=== PATIENT | male | born 1950 | race Caucasian/White ===

== ENCOUNTER 2021-11-21 06:43 | Observation (INO) ==
--- NOTE | 2021-09-24 16:00 | PAT Medication Instructions ---
Medication Instructions Date of Service September 24, 2021 Home Medications Medication Instructions Recorded ramipril 10 mg capsule 10 mg PO BID #180 caps 03/02/21 ezetimibe 10 mg tablet 10 mg PO QPM #90 tabs 06/01/21 hydrochlorothiazide 12.5 mg tablet 12.5 mg PO QAM #90 tabs 06/01/21 carvedilol 6.25 mg tablet 6.25 mg PO BID #180 tabs 07/26/21 nitroglycerin 0.4 mg sublingual 0.4 mg sublingual Q5M PRN Chest 07/26/21 tablet Pain #30 tabs aspirin 81 mg tablet,delayed release 81 mg PO QAM cholecalciferol (vitamin D3) 50 mcg (2,000 unit) capsule 2,000 unit PO BID multivitamin (Multiple Vitamins tablet) 1 tab PO QAM apixaban 5 mg tablet (Eliquis) 5 mg PO BID ramipril 10 mg capsule 10 mg PO BID atorvastatin 80 mg tablet 80 mg PO QPM mupirocin 2 % topical ointment 1 applic topical UD PRN NOSE BLEEDING ezetimibe 10 mg tablet 10 mg PO QPM hydrochlorothiazide 12.5 mg tablet 12.5 mg PO QAM carvedilol 6.25 mg tablet 6.25 mg PO BID loratadine 10 mg tablet (Claritin) 10 mg PO QAM PRN Allergy Symptoms nitroglycerin 0.4 mg sublingual tablet 0.4 mg sublingual Q5M PRN Chest Pain Continue as directed nitroglycerin 0.4 mg sublingual tablet 0.4 mg sublingual Q5M PRN Chest Pain(if needed) ASK your prescriber and surgeon apixaban 5 mg tablet (Eliquis) 5 mg PO BID(in order for spinal or epidural anesthesia, Eliquis needs to be stopped 72 hours/3 days before surgery. Please check if okay with doctor that prescribes this to you) DO NOT take the morning of surgery cholecalciferol (vitamin D3) 50 mcg (2,000 unit) capsule 2,000 unit PO BID multivitamin (Multiple Vitamins tablet) 1 tab PO QAM ramipril 10 mg capsule 10 mg PO BID hydrochlorothiazide 12.5 mg tablet 12.5 mg PO QAM loratadine 10 mg tablet (Claritin) 10 mg PO QAM PRN Allergy Symptoms Take morning of surgery With a small sip of water, OTHERWISE NOTHING TO EAT OR DRINK AFTER MIDNIGHT: aspirin 81 mg tablet,delayed release 81 mg PO QAM (unless directed otherwise by surgeon) mupirocin 2 % topical ointment 1 applic topical UD PRN NOSE BLEEDING(if needed) carvedilol 6.25 mg tablet 6.25 mg PO BID Take evening before surgery cholecalciferol (vitamin D3) 50 mcg (2,000 unit) capsule 2,000 unit PO BID ramipril 10 mg capsule 10 mg PO BID atorvastatin 80 mg tablet 80 mg PO QPM ezetimibe 10 mg tablet 10 mg PO QPM carvedilol 6.25 mg tablet 6.25 mg PO BID Other Notes If you have any questions please call us at [phone] or [phone] or [phone] or [phone]
--- NOTE | 2021-10-02 13:08 | Anesthesiology Consultation ---
Date of Service October 02, 2021 Assessment & Plan (1) Encounter for pre-operative examination: - COVID screening: Per assessment on 10/02: No known COVID-19 positive contacts or current COVID-19 related symptoms. Travel screen- returned from [place] 10/01. Patient vaccinated. At surgeon discretion if preop Covid testing being done. - Cardiology office visit (07/26/21): "Post PCI x2 to RCA 12/2011, initially in the setting of cardiac arrest.. Multivessel CAD on cath 02/2017minimal ischemia on repeated stress test, being medically managed.. Persistent atrial fibrillationstop sotalol. Carvedilol for rate control, [id number], on Eliquis.. Hypertensionwell controlled on 2 agents.. Stable from a cardiac standpoint. Participating with cardiac rehab with improving exercise tolerance. No anginal symptoms. Recent Lexiscan SPECT negative for ischemia. On exam remains in persistent rate controlled atrial fibrillation. Stable mild lower extremity edema, no pulmonary congestion.. As remains in persistent, asymptomatic atrial fibrillation will discontinue sotalol. Switch to carvedilol for rate control, blood pressure management. Continue anticoagulation with Eliquis. Encouraged resuming regular exercise following completion of cardiac rehab. No other changes made to cardiac regimen.. Repeat Lexiscan SPECT in April 2022 with follow-up after test... Follow Up: 9 months" - Outpatient joint assessment: Pt currently scheduled for inpatient pathway. If surgeon requests review for outpatient joint pathway, patient is not candidate for outpatient joint program from anesthesia standpoint. - Apixaban instructions: patient made aware that in order for spinal anesthesia, Apixaban needs to be held 72 hours/3 days prior to surgery. Patient voiced un derstanding/will check if okay with prescriber. - Recent fall: Pt had recent mechanical fall resulting in head injury/left ear laceration. Seen at [facility] ER 09/29/21. CT head negative for any intracranial injury per ER records. Pt reports feeling well at PAT visit 10/02/21- left ear laceration healing. Chart Review Chart Review: Acceptable Risk for Surgery (pending evaluation AM DOS) and Patient seen in Pre Admission Testing Teaching & Discussion Pre-Anesthesia Teaching/Discussion Notes: Instructed NPO after midnight before surgery,except medications with 15 cc of water. Medication instructions provided according to the PAT guidelines. History Surgery Operation Date: 10/12/21 12:30 Proposed Procedures p Left Total Knee Arthroplasty - Mikel Fields MD Height/Weight Height: 5 ft 7 in Weight: 92.5 kg Allergies Allergy/AdvReac Type Severity Reaction Status Date / Time No Known Drug Allergies Allergy Unknown Verified 09/21/21 11:30 Medications Home Medications Medication Instructions Recorded Confirmed Last Taken aspirin 81 mg tablet,delayed 81 mg PO QAM 01/19/20 09/21/21 07/17/21 release cholecalciferol (vitamin D3) 50 2,000 unit PO BID 01/19/20 09/21/21 07/17/21 mcg (2,000 unit) capsule multivitamin (Multiple Vitamins 1 tab PO QAM 01/19/20 09/21/21 07/17/21 tablet) apixaban 5 mg tablet (Eliquis) 5 mg PO BID 02/14/20 09/21/21 07/17/21 ramipril 10 mg capsule 10 mg PO BID #180 caps 03/02/21 09/21/21 07/17/21 atorvastatin 80 mg tablet 80 mg PO QPM 05/31/21 09/21/21 07/16/21 mupirocin 2 % topical ointment 1 applic topical UD PRN NOSE 05/31/21 09/21/21 07/16/21 BLEEDING ezetimibe 10 mg tablet 10 mg PO QPM #90 tabs 06/01/21 09/21/21 07/16/21 hydrochlorothiazide 12.5 mg tablet 12.5 mg PO QAM #90 tabs 06/01/21 09/21/21 07/17/21 carvedilol 6.25 mg tablet 6.25 mg PO BID #180 tabs 07/26/21 09/21/21 Unknown loratadine 10 mg tablet (Claritin) 10 mg PO QAM PRN Allergy Symptoms 07/26/21 09/21/21 Unknown nitroglycerin 0.4 mg sublingual 0.4 mg sublingual Q5M PRN Chest 07/26/21 09/21/21 Unknown tablet Pain #30 tabs Past Medical History Medical History AF (atrial fibrillation) Reason for Eliquis Follows with [facility] cardiology CAD (coronary artery disease) Post PCI x2 to RCA 12/2011, initially in the setting of cardiac arrest.. Multivessel CAD on cath (2017)minimal ischemia on repeated stress test, being medically managed. No significant ischemia on 04/2021 nuclear stress test. Chronic venous insufficiency History of hepatitis A 1969 Hyperlipidemia Hypertension Myocardial infarction 2010 Obesity (BMI 30.0-34.9) Primary hypertension Exercise / Class Metabolic Activity III < 4 Walking/Shop/Light housework (one FS (no CP, + SOB)) Past Family History Family History Father Cardiac disorder Hypertension Myocardial infarction Mother Hypertension Sister Hypertension Family/Other Hypertension per new patient form-"All"-pt states multiple maternal and paternal family members Other No family history of adverse response to anesthesia No family history of bleeding disorder Denies family history of Ovarian cancer Prostate cancer Breast cancer Colorectal cancer Past Surgical History Surgical History History of cardiac cath Post PCI x2 to RCA 12/2011, initially in the setting of cardiac arrest.. Multivessel CAD on cath 02/2017minimal ischemia on repeated stress test, being medically managed History of cataract surgery right /LEFT History of colonoscopy 04/25/2009 12/08/19-"metal clip" History of coronary angiogram History of left knee surgery 09/09/1997 History of mandibular surgery cyst removed-09/13/93 History of oral surgery gum-11/07/2000 History of surgical removal of ganglion cyst 11/23/13 History of vasectomy 12/12/1995 Past Anesthesia History No Hx of Anesthesia Complications and No Family Hx of Anesthesia Complications History of PONV No Hx of PONV and No Hx of Motion Sickness Social History Smoking Status: Former smoker tobacco type: cigarettes Do You Dip or Chew Tobacco: No Smoking End Date: QUIT 01/1974 Hx Alcohol Use: Yes Alcohol type: beer, wine and hard liquor alcohol intake frequency: 0-2 drinks per day Hx Substance Use: No substance use type: does not use Review of Systems Patient denies chest pain, shortness of breath, fever, chills, cough, wheezing, palpitations. Physical Exam Vital Signs VITALS BP 100/68 P 55 TEMP 98.0 SP02 95%RA RESP 16 PHYSICAL Mildly decreased cervical extension range of motion. Full TMJ range of motion. TMD 3.5 finger breaths Mallampati Score 2 Dentition: several missing teeth, + cap (side) Lungs: clear throughout to auscultation Cardiac: regular rate, irregular rhythm, no murmurs noted Spine: normal Carotid arteries: negative bruit Extremities: no edema Lab Results Anesthesia Preop Results Results Anesthesia Widget: WBC 5.63 K/ul (4.8-10.8) 10/02/21 Hgb 14.9 g/dl (14.0-18.0) 10/02/21 Hct 46.6 % (40.1-51.0) 10/02/21 Plt 175 K/uL (130-400) 10/02/21 Na 137 mmol/L (136-145) 10/02/21 K 3.7 mmol/L (3.5-5.1) 10/02/21 Cl 103 mmol/L (98-107) 10/02/21 CO2 28 mmol/L (21-32) 10/02/21 BUN 15 mg/dl (6-23) 10/02/21 Creat 0.81 mg/dl (0.6-1.4) 10/02/21 Glucose Level 114 mg/dl (70-99(Fasting)) H 10/02/21 PT 11.9 Seconds (9.0-12.0) 10/02/21 PTT 32.2 Seconds (21.0-31.0) H 10/02/21 INR 1.1 (0.9-1.1) 10/02/21 Blood Type A Positive 10/02/21 Antibody Screen NEGATIVE 10/02/21 Testing Electrocardiogram Date: 10/02/21 Findings: + AFIB @ (68) Chest X-Ray Date: 10/02/21 FINDINGS: Lung volumes are normal. Lungs are clear. There is no pneumothorax or pleural effusion. Moderate cardiomegaly is noted. Mediastinal contours are normal. There is no evidence for pulmonary edema. IMPRESSION: No acute cardiopulmonary findings. Cardiomegaly. Stress Test Date: 04/20/21 Type: nuclear Normal Lexiscan myocardial perfusion study with no evidence of infarct or ischemia. No left ventricular wall motion abnormalities. Nondilated left ventricle with normal systolic function (EF=53%). Non-diagnostic stress ECG due to inability to reach target HR; no ischemic changes or dysrhythmias. Cardiac Catheterization Date: 02/2017 Attempts to obtain official report unsuccessful. 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 CABG considered. At that time underwent nuclear stress and had above average functional capacity (9: 29) with only minimal apical ischemia and decision made to manage CAD medically. Since that time has undergone yearly stress tests"
--- NOTE | 2021-11-17 11:50 | History and Physical Report ---
DATE OF ADMISSION: 11/21/2021. CHIEF COMPLAINT: Bilateral knee pain and discomfort, left side greater than right. HISTORY OF PRESENT ILLNESS: A 71-year-old gentleman who presents for surgical treatment of his knees , particularly the left knee. He has got a long history of knee problems, left side a bit worse than right. He has been through extensive conservative treatment provided elsewhere. He is not interest ed in further conservative care and would like to have his left knee replaced. He has got global eros n in the knee. The more he is up and on it, the more it hurts. He was actually scheduled previously , but canceled due to some COVID issues. He now presents for definitive treatment. PAST MEDICAL HISTORY: 1. Atrial fibrillation, on Eliquis. 2. History of PE with no known clotting disorder, on Eliquis. 3. Coronary artery disease, status post stent placement with a heart attack in 2010 without current symptoms. 4. Mild obesity. PAST SURGICAL HISTORY: 1. Cardiac catheterization. 2. Cataract surgery. 3. Left knee surgery. 4. Mandibular surgery. 5. Oral surgery. 6. Wrist surgery for ganglion removal. 7. Vasectomy. ALLERGIES: None. CURRENT MEDICATIONS: 1. Eliquis. 2. Aspirin. 3. Atorvastatin. 4. Carvedilol. 5. Vitamin D3. 6. Ezetimibe. 7. Hydrochlorothiazide. 8. Claritin. 9. Multivitamin. 10. Mupirocin ointment. 11. Nitroglycerin. 12. Ramipril. SOCIAL HISTORY: A 71-year-old male. Former smoker. Does not smoke anymore. Limited alcohol intake . FAMILY HISTORY: Noncontributory. REVIEW OF SYSTEMS: Negative for diabetes. He does have a history of a cardiac stent placement. Also atrial fibrillation on Eliquis. PHYSICAL EXAMINATION: GENERAL: Shows a pleasant middle-aged male. Looks to be in pretty good health. HEENT: Benign. NECK: Supple. No lymphadenopathy. LUNGS: Clear to auscultation. HEART: Has a regular rate and rhythm. ABDOMEN: Soft, nontender, nondistended. EXTREMITIES: Grossly neurovascularly intact except as follows. Examination of his knees revealed patient walks with a bit of waddling gait. He has got varus alignm ent to both knees. Examination of the left knee reveals a varus alignment. He has got bony hypertro phy medially. Small knee effusion. Range of motion is 5-120. No instability. Examination of the right knee reveals varus alignment. Minimal knee effusion. Range of motion is 5- 125. No instability. X-RAYS: Four view knee series of left knee shows advanced left knee degenerative joint disease. He has got complete loss of medial joint space. He has got tibial femoral subluxation. He has got tric ompartment disease. ASSESSMENT: A 71-year-old gentleman with multiple medical issues including chronic atrial fibrillati on on Eliquis, history of deep venous thrombosis in the past, coronary artery disease with advanced b ilateral knee degenerative joint disease, left side worse than right. He has failed conservative chaparrita sures and would like to have his left knee replaced. He had been scheduled previously, but had to be canceled due to some COVID issues. He would now like to proceed. PLAN: We will proceed with left knee replacement. The risks and benefits of this procedure were exp lained to the patient and include but not limited to DVT, PE, , infection, neurological injury, vascular injury, bleeding problem, pain, limited range of motion, stiffness, failure to relieve sympt oms, incomplete relief of symptoms, need for further surgery in the future, etc. The patient underst ands and desires to proceed. Informed consent was obtained. He knows to hold his Eliquis 3 days preop. We will begin his 24 hours postoperatively at prophylacti c dose. This will be for his atrial fibrillation as well as his DVT prophylaxis. He is planning to be discharged to home using energy physical therapy. Job ID: [id number]
[~2021-11-21 06:43] MED LIST: ACETAMINOPHEN 500 MG TAB PO SCH; BUPIVACAINE 0.5 % 5 MG/1 ML MPF 30ML VIAL ONE; BUPIVACAINE LIPOSOME/PF 266 MG, BUPIVACAINE/EPINEPHRINE 50 ML, SODIUM CHLORIDE 0.9% 30 ... INFIL SCH; CeleBREX 200 MG CAP PO SCH; FAMOTIDINE 20 MG TAB PO SCH; LR 500ML BOLUS, THEN 15ML/HR IV SCH; LR 60ML/HR IV SCH; METOCLOPRAMIDE HCL 10 MG TABLET PO SCH; ROPIVACAINE 0.5% 5 MG/ML 30 ML VIAL ONE; TRANEXAMIC ACID 1,000 MG **IV Intra-op IV SCH; ceFAZolin 2000MG 2,000 MG/15 ML SYR IV SCH
--- NOTE | 2021-11-21 06:58 | History & Physical Bridge Note ---
Date of Service November 21, 2021 History & Physical Bridge Note I have examined the patient, reviewed the History & Physical and in the interval since the performance of the History & Physical I have noted the following changes of clinical significance: no changes noted
[2021-11-21] MEDS ORDERED: MIDAZOLAM HCL 1 MG/ML 2ML VIAL ONE (07:29)
[2021-11-21] MEDS ORDERED: fentaNYL citrate 100 MCG/2 ML VIAL ONE (07:29)
[2021-11-21] MEDS ORDERED: LIDOCAINE 2% 20 MG/ML 5 ML SYR IV ONE (07:32)
[2021-11-21] MEDS ORDERED: PROPOFOL IV EMULSION 10 MG/ML 20 ML VIAL IV ONE ×2 (07:32→10:35)
[2021-11-21] MEDS ORDERED: fentaNYL citrate 100 MCG/2 ML VIAL IV PRN (08:03)
[2021-11-21] MEDS ORDERED: ONDANSETRON INJ 2 MG/ML 2 ML VIAL IV PRN ×2 (08:03→13:31)
[2021-11-21] MEDS ORDERED: ATROPINE SULFATE 0.1 MG/ML 10ML SYR IV PRN (08:03)
[2021-11-21] MEDS ORDERED: ePHEDrine sulfate 50 MG/ML AMP IV PRN (08:03)
[2021-11-21] MEDS ORDERED: BUPIVACAINE LIPOSOME 1.3% 266 MG/20 ML VIAL ONE (09:01)
[2021-11-21] MEDS ORDERED: SODIUM CHLORIDE 0.9% PF 50 ML VIAL ONE (09:01)
[2021-11-21] MEDS ORDERED: BUPIVACAINE/EPINEPHRINE 0.25% 1:200,000 30 ML VIAL ONE (09:01)
[2021-11-21] MEDS ORDERED: PHENYLEPHRINE HCL 10 MG/ML VIAL ONE (09:52)
--- NOTE | 2021-11-21 11:20 | Operative Report ---
PG Post Operative Report Pre & Post Diagnosis Operation Date: 10/12/21 10:40 <No data on this case meets the specified criteria> Operation Date: 11/21/21 08:50 Pre-Op Diagnosis: Left Knee Degenerative Joint Disease Post-Op Diagnosis: Left Knee Degenerative Joint Disease I identified the patient and participated in the time-out.: Yes Procedure Operation Date: 10/12/21 10:40 <No data on this case meets the specified criteria> Operation Date: 11/21/21 08:50 Actual Procedures p Left Total Knee Arthroplasty(Left) - Mikel Fields MD Surgeon Mikel Fields MD Energy And Sustainability Manager Oliverio Nguyễn PA-C Estimated Blood Loss 50 Findings Consistent with Post-Op Diagnosis Operative findings were advanced tricompartment left knee DJD. He had extensive grade 4 [id number] disease in all 3 compartments with erosive changes most severe in the medial side with eburnation. He had a varus deformity to his knee. He extensive synovitis and hemorrhagic synovitis with question of PVNS. Fluids 1100 cc. Specimens Left knee sent for pathology Drains None Anesthesia Type Spinal MAC Complications none Disposition Accompanied Patient To Recovery: No Indications Patient 71-year-old gentleman has had a several year history of increasing bilateral knee pain discomfort left side bit worse than the right. He has been through extensive conservative treatment the past which became less successful. X-rays show advanced left knee arthritis in all 3 compartments. He elected proceed with surgical treatment. He was medically optimized preoperatively. Description of Procedure Operative implants consist of: 1. Biomet Vanguard size 65 left posterior stabilized femoral component. 2. Biomet size 79 tibial tray. 3. 10 mm posterior stabilized polyethylene insert. 4. 31 x 8 all Paller patella. The patient was taken the operating, identified, placed on the operating table supine position. All contact areas were properly padded. IV antibiotics tried by anesthesia team. A spinal anesthetic and abductor canal block had provided holding area. Espinoza catheter was placed in sterile fashion for left factor was then placed left lower extremity then prepped and draped in usual sterile fashion. The left leg was elevated exsanguinated with use of an Esmarch interspaced at 300 mmHg. An anterior posterior left knee was then performed to longitudinal incision centered over the patella. Sharp dissection was carried through sub cutaneous tissue down the extensor mechanism. Medial parapatellar arthrotomy incision was made. Some subperiosteal dissection was carried out medially. A complete synovectomy of the suprapatellar pouch and medial lateral gutters was performed and the synovium was sent for analysis. It was very hemorrhagic and had the appearance of a pigmented villonodular synovitis but did not seem quite that severe. The lateral patellofemoral ligament was slanted released. The patella subluxated laterally and the knee was flexed. The osteophyte taken off distal femur. The ACL and PCL were then released from distal femur the tibia subluxated anteriorly. External tibial alignment jig was then placed in the interface the tibia and adjusted 14 mm medially. Proximal tibial cut was made essentially flush with the most deficient aspect of the posterior medial tibial plateau. This area was fairly worn. I did drill some holes in this part of the tibia for cement interdigitation. The tibia was then sized to a size 79. Attention drawn the femur. The distal femur was entered with a sharp drill. Intramedullary canal was suction. A left 6 degree valgus cutting guide was placed. Distal femoral cutting block was pinned in place. The distal femoral cut was made to take an additional 3 mm bone off distal femur. The femur was then sized to a size 65. The AP cutting block was pinned parallel to the epicondylar axis which was 6 degrees of external rotation. The anterior cut, anterior chamfer, posterior cut, posterior chamfer cuts were made. The box cutting guide was placed in just slight lateral box cut was made. The knee was flexed. The remnants of the medial and lateral menisci were excised. The osteophytes taken off the posterior aspect of the femur. Trial femoral component was placed. The tibial tray was pinned in maximum external rotation and the drill and stem punch were used to create the defect in proximal tibia for the tibial tray. Knee was then trialed and the 10 mm insert fit most appropriately. Attention drawn the patella. The patella was cleaned of all soft tissues. Patella thickness measured 20 mm in thickness was cut down to 13. Was sized to a size 31 patella. The lug holes were drilled for the 31 patella. Lateral osteophytes removed. Patella button was placed. Knee was taken through range of motion and the patella tracked nicely with no thumbs test. Attention drawn to placing permanent components. All trial components were removed. A bone plug was placed in the distal femur limit blood loss. Batch Palacos G cement was mixed. A Biomet Vanguard size 65 left posterior stabilized femoral component, size 79 tibial tray, a 10 mm posterior stabilized polyethylene insert, and a 31 x 8 all Paller patella then cemented in place. Knee was brought into full extension until cement hardened. Final cement check was then performed. Pericapsular tissues were injected with total 100 cc of combination of 20 cc of Exparel, 30 cc normal saline, 50 cc of quarter percent Marcaine with epinephrine. Patient did receive 1 g tranexamic acid. The tourniquet was then let down for final turn time 61 minutes. Hemostasis assured use electrocautery. The extensor mechanism closed with combination 1 PDS suture #1 Vicryl suture in [id number] fashion. Extensor mechanism checked found to be intact the subcutaneous tissue was then closed with 2 Dexon suture in buried interrupted fashion skin was closed skin meseret. Leg was then cleaned and dried and a sterile dressing was Xeroform, 4 x 4's, sterile cast padding, Mark bandage were applied. Patient then transferred to the recovery room in stable condition. Patient tolerated procedure well and there were no complications. Oliverio Nguyễn, my physician assistant hall director, was present for the entire procedure. His assistance was essential and required for appropriate patient positioning, prepping and draping, surgical exposure, performing the technical details of the operation, placement the implants, closure of the wound, and placement of the sterile bandage. I attest to the content of the Intraoperative Record and any orders documented therein. Any exceptions are noted below.
--- NOTE | 2021-11-21 13:01 | Anesthesiology Progress Note ---
Date of Service November 21, 2021 Anesthesia Post Procedure Vital Signs Vital Signs: Temp Pulse Pulse Resp BP Pulse Ox O2 Del Method 11/21/21 12:50 52 L 15 126/68 98 Room Air 11/21/21 12:38 38 L 14 132/72 98 Room Air 11/21/21 12:30 40 L 12 129/68 98 Room Air 11/21/21 12:20 49 L 18 113/65 99 Room Air 11/21/21 12:10 43 L 15 134/80 99 Room Air 11/21/21 12:00 41 L 18 112/64 97 Room Air 11/21/21 11:50 45 L 19 120/75 95 Room Air 11/21/21 11:40 43 L 17 105/69 97 Room Air 11/21/21 11:30 46 L 13 118/47 L 95 Room Air 11/21/21 11:20 55 L 13 110/65 99 Oxymask 11/21/21 11:12 97.7 F 49 L 17 102/65 98 Oxymask 11/21/21 07:09 97.9 F 66 22 144/76 H 98 Room Air 11/21/21 07:09 Room Air O2 Flow Rate 11/21/21 12:50 11/21/21 12:38 11/21/21 12:30 11/21/21 12:20 11/21/21 12:10 11/21/21 12:00 11/21/21 11:50 11/21/21 11:40 11/21/21 11:30 11/21/21 11:20 5 11/21/21 11:12 5 11/21/21 07:09 11/21/21 07:09 Pain Intensity Left Knee: Pain Intensity: 0 Transfer of Care Handoff Completed per policy Notes Mental Status: alert / awake / arousable and participated in evaluation Patient Amnestic to Procedure: Yes Nausea / Vomiting: adequately controlled Pain: adequately controlled Airway Patency, RR, SpO2: stable & adequate BP & HR: stable & adequate Hydration State: stable & adequate Neuraxial Anesthesia: was administered and sensory block is resolving Anesthetic Complications: no major complications apparent and Pt Satisfied with anesthetic care
--- NOTE | 2021-11-21 13:15 | XRay Report ---
LEFT KNEE 2 VIEWS History: Left total knee arthroplasty. Degenerative arthritis. Postop. FINDINGS: The patient is status post a left total knee arthroplasty. The hardware is intact. No fract ure or dislocation. Skin meseret are in place. IMPRESSION: Left total knee arthroplasty. No evidence for hardware complication. ACT 112: Negative or not required by law. Electronically signed by: Ludwin Thorne M.D. 11/21/2021 1:14 PM
[2021-11-21] MEDS ORDERED: ALUMINUM/MAGNESIUM SUSP 30 ML UDC PO PRN (13:31)
[2021-11-21] MEDS ORDERED: HYDROmorphone INJ 0.5 MG/0.5 ML SYR IV PRN (13:31)
[2021-11-21] MEDS ORDERED: LORATADINE 10 MG TAB PO PRN (13:31)
[2021-11-21] MEDS ORDERED: METOCLOPRAMIDE HCL INJ 5 MG/ML 2 ML VIAL IV PRN (13:31)
[2021-11-21] MEDS ORDERED: NALOXONE HCL 0.4 MG/1 ML VIAL/CARP IV PRN (13:31)
[2021-11-21] MEDS ORDERED: MAGNESIUM HYDROXIDE SUSP 30 ML UDC PO PRN (13:31)
[2021-11-21] MEDS ORDERED: oxyCODONE HCL IR 5 MG TAB (IMMEDIATE RELEASE) PO PRN (13:31)
[2021-11-21] MEDS ORDERED: NITROGLYCERIN SL 0.4 MG/TAB TAB SL PRN (13:31)
[2021-11-21] MEDS ORDERED: bisacodyL 10 MG SUPP PR PRN (13:31)
[2021-11-21] MEDS ORDERED: ONDANSETRON 4 MG OD TAB PO PRN (13:49)
[2021-11-21] MEDS: SODIUM CHLORIDE 0.9% 1000ML 1,000 ML IV SCH ×2 (15:18→22:42)
[2021-11-21] MEDS: ACETAMINOPHEN 500 MG TAB PO SCH ×2 (15:18→21:29)
--- NOTE | 2021-11-21 16:13 | Cardiology Consultation ---
Date of Consultation November 21, 2021 Assessment & Plan (1) AF (atrial fibrillation): -the patient demonstrates a slow ventricular response to atrial fibrillation, however, is asymptomatic. -will hold his evening dose of carvedilol. -Dr. Rodriguez will decide on the carvedilol dose tomorrow. -continue long-term anticoagulation (currently on Eliquis 2.5 mg b.i.d.). (2) CAD (coronary artery disease): -extensive history is described above. -continue medical management and yearly surveillance stress tests. (3) Hypertension: -adequate control on current regimen. (4) Hyperlipidemia: -continue atorvastatin. History of Present Illness Attending Physician: Mikel Fields MD History of Present Illness Mr. Santoyo is a 71-year-old male who underwent left knee replacement surgery today. He has demonstrated slow response to his permanent atrial fibrillation, therefore, this consultation was ordered. Of note, patient typically follows with Dr. Rodriguez the outpatient setting. The patient's cardiac history began in November 2010 when he suffered a cardiac a rrest. He underwent placement of 2 stents within the RCA. He did well until April 2011 when he had a EMIL placed in the distal RCA. His most recent cardiac catheterization was performed in February 2017. This revealed a 70% ostial LAD (FFR 0.85), 60% ramus stenosis (FFR 0.9), 70% branch of the ramus (FFR 0.87), a LOAN REVIEWER of the mid LCx, 70% ostial RCA, and 50% mid RCA with minimal InStent restenoses. There was also a 60% proximal PDA. Bypass surgery is contemplated, however, a nuclear stress test noted good exercise tolerance with minimal apical ischemia. Therefore, medical management was lisette mmended. The patient has done well from a cardiac perspective since that time. He did undergo a normal nuclear stress test in April 2021. Left ventricular ejection fraction was 53%. He was diagnosed with atrial fibrillation at the time of his cardiac arrest. He was on antiarrhythmic therapy until July of this year when his sotalol was discontinued as he was in permanent atrial fibrillation. He has done well with long-term anticoagulation. He underwent his knee replacement surgery today without event. We have discussed a slow ventricular response to atrial fibrillation. The patient is c ompletely asymptomatic denying fatigue, syncope, and presyncope. He is currently on carvedilol 6.25 mg twice daily. Currently, patient is resting comfortably in bed without complaints. Past medical and surgical history 1. Coronary artery disease-see above 2. PCI RCA times 11 November 2010 3. Distal RCA EMIL-April 2011 4. Hypertension 5. Hypercholesterolemia 6. Permanent atrial fibrillation 7. Colonic polyps 8. Allergic rhinitis 9. Obesity 10. History of hepatitis a 11. Bilateral intra-ocular lens implants 12. History of mandibular surgery 13. 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 Allergies Allergy/AdvReac Type Severity Reaction Status Date / Time No Known Drug Allergies Allergy Unknown Verified 11/21/21 07:04 Home Medications Medication Instructions Recorded Confirmed Type aspirin 81 mg tablet,delayed 81 mg PO QAM 01/19/20 11/21/21 History release cholecalciferol (vitamin D3) 50 2,000 unit PO BID 01/19/20 11/21/21 History mcg (2,000 unit) capsule multivitamin (Multiple Vitamins 1 tab PO QAM 01/19/20 11/21/21 History tablet) ramipril 10 mg capsule 10 mg PO BID #180 caps 03/02/21 11/21/21 Rx atorvastatin 80 mg tablet 80 mg PO HS 05/31/21 11/21/21 History mupirocin 2 % topical ointment 1 applic topical UD 05/31/21 11/21/21 History hydrochlorothiazide 12.5 mg tablet 12.5 mg PO QAM #90 tabs 06/01/21 11/21/21 Rx carvedilol 6.25 mg tablet 6.25 mg PO BID #180 tabs 07/26/21 11/21/21 Rx loratadine 10 mg tablet (Claritin) 10 mg PO QAM PRN Allergy Symptoms 07/26/21 11/21/21 History nitroglycerin 0.4 mg sublingual 0.4 mg sublingual Q5M PRN Chest 07/26/21 Rx tablet Pain #30 tabs apixaban 5 mg tablet (Eliquis) 5 mg PO BID #90 tabs 11/13/21 11/21/21 Rx acetaminophen 500 mg capsule 1,000 mg PO TID Pain 30 days #180 11/19/21 11/21/21 Rx caps ezetimibe 10 mg tablet 10 mg PO HS 11/19/21 11/21/21 History ondansetron HCl 4 mg tablet 4 mg PO Q6H PRN nausea 11/19/21 11/21/21 History oxycodone 5 mg tablet 5 - 10 mg PO Q6H PRN pain 11/19/21 11/21/21 History sennosides 8.6 mg-docusate sodium 1 tab-cap PO BID #30 tabs 11/19/21 11/21/21 Rx 50 mg tablet (Senokot-S) tamsulosin 0.4 mg capsule (Flomax) 0.4 mg PO HS 11/19/21 11/21/21 History Patient History Medical History (Updated 11/21/21 @ 16:10 by Shamir Abarca MD) AF (atrial fibrillation) Reason for Eliquis Follows with [facility] [place] cardiology CAD (coronary artery disease) Post PCI x2 to RCA 12/2011, initially in the setting of cardiac arrest.. Multivessel CAD on cath (2017)minimal ischemia on repeated stress test, being medically managed. No significant ischemia on 04/2021 nuclear stress test. Chronic venous insufficiency History of hepatitis A 1969 Hyperlipidemia Hypertension Myocardial infarction 2010 Obesity (BMI 30.0-34.9) Primary hypertension Surgical History History of cardiac cath Post PCI x2 to RCA 12/2011, initially in the setting of cardiac arrest.. Multivessel CAD on cath 02/2017minimal ischemia on repeated stress test, being medically managed History of cataract surgery right /LEFT History of colonoscopy 04/25/2009 12/08/19-"metal clip" History of coronary angiogram History of left knee surgery 09/09/1997 History of mandibular surgery cyst removed-09/13/93 History of oral surgery gum-11/07/2000 History of surgical removal of ganglion cyst 11/23/13 History of vasectomy 12/12/1995 Family History Father Cardiac disorder Hypertension Myocardial infarction Mother Hypertension Sister Hypertension Family/Other Hypertension Other No family history of adverse response to anesthesia No family history of bleeding disorder Denies family history of Ovarian cancer Prostate cancer Breast cancer Colorectal cancer Social History Smoking Status: Former smoker Tobacco Type: Cigarettes packs per day: 1; Smoking End Date: 02/09/74-only smoked for 5 years; Second Hand Exposure: No; Do You Dip or Chew Tobacco: No; Tobacco Cessation Education Requested by Patient: No Hx Alcohol Use: Yes Alcohol type: beer, wine and hard liquor Alcohol Intake Frequency: 4 or More x per/Week Alcohol Intake Frequency Comment: 1 drink/day Hx Substance Use: No Preferred Language: Tajik Communication Ability: Effective Typing Checker Required: No Beliefs That Will Affect Care: None marital status: Current Living Situation: Spouse current occupational status: employed 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 HEENT exam is negative. Neck is supple with full carotid upstrokes. There are no carotid bruits. Jugular venous pressure is flat at 90. No t hyromegaly. Cardiovascular exam reveals irregular irregular rhythm with distant heart sounds. No obvious murmurs. Lungs are clear without rales, rhonchi or wheezes. Abdomen is obese without bruits. Extremities reveal intact radial artery pulses bilaterally. There is no peripheral edema. Left lower extremity is wrapped. Results & Data ([facility]) Vital Signs (Past 12 Hours) Vital Signs Temp Pulse Pulse Resp BP Pulse Ox O2 Del Method 11/21/21 15:01 36.3 C L 54 L 16 126/64 98 Room Air 11/21/21 13:30 46 L 21 119/75 97 Room Air 11/21/21 13:45 46 L 15 129/65 97 Room Air 11/21/21 13:20 55 L 21 138/72 99 Room Air 11/21/21 13:10 36.5 C 60 15 122/74 99 Room Air 11/21/21 13:00 47 L 13 121/75 98 Room Air 11/21/21 12:50 52 L 15 126/68 98 Room Air 11/21/21 12:38 38 L 14 132/72 98 Room Air 11/21/21 12:30 40 L 12 129/68 98 Room Air 11/21/21 12:20 49 L 18 113/65 99 Room Air 11/21/21 12:10 43 L 15 134/80 99 Room Air 11/21/21 12:00 41 L 18 112/64 97 Room Air 11/21/21 11:50 45 L 19 120/75 95 Room Air 11/21/21 11:40 43 L 17 105/69 97 Room Air 11/21/21 11:30 46 L 13 118/47 L 95 Room Air 11/21/21 11:20 55 L 13 110/65 99 Oxymask 11/21/21 11:12 36.5 C 49 L 17 102/65 98 Oxymask 11/21/21 07:09 36.6 C 66 22 144/76 H 98 Room Air 11/21/21 07:09 Room Air O2 Flow Rate 11/21/21 15:01 11/21/21 13:30 11/21/21 13:45 11/21/21 13:20 11/21/21 13:10 11/21/21 13:00 11/21/21 12:50 11/21/21 12:38 11/21/21 12:30 11/21/21 12:20 11/21/21 12:10 11/21/21 12:00 11/21/21 11:50 11/21/21 11:40 11/21/21 11:30 11/21/21 11:20 5 11/21/21 11:12 5 11/21/21 07:09 11/21/21 07:09 Laboratory Results CBC notes hemoglobin 14.9, hematocrit 46.6, white count 5.6, a platelet count [id number]. Electrolytes note a sodium of 137, potassium 3.7, chloride 103, bicarb 20, BUN 15, creatinine 0.81, glucose of 114. Diagnostic Findings EKG notes atrial fibrillation with a ventricular response of 68 beats per minute. Chest x-ray notes cardiomegaly. PG Care Time/CCT Total # of Minutes Spent Total Time Spent with Patient: Total time spent is greater than 50% in coordination of care (as documented) at patient's floor/unit and/or counseling patient: Coding Level of Care Code 03784 Initial In Care Lvl 3 Diagnoses AF (atrial fibrillation) I48.91 CAD (coronary artery disease) I25.10 Hypertension I10 Hyperlipidemia E78.5
[2021-11-21] MEDS: KETOROLAC TROMETHAMINE 15 MG/ML VIAL IV SCH ×2 (16:26→21:29)
[2021-11-21] MEDS: ceFAZolin 2000MG 2,000 MG/15 ML SYR IV SCH (16:27)
[2021-11-21] MEDS: ASCORBIC ACID 500 MG TAB PO SCH (16:28)
[2021-11-21] MEDS ORDERED: TRANEXAMIC ACID / 0.7% NACL 1,000 MG/100 ML BAG IV SCH (17:15)
[2021-11-21] MEDS ORDERED: carvediloL 6.25 MG TAB PO SCH (21:00)
[2021-11-21] MEDS: CHOLECALCIFEROL 1,000 UNITS 25 MCG TAB PO SCH (21:30)
[2021-11-21] MEDS: DOCUSATE SODIUM/SENNA 50/8.6MG TAB PO SCH (21:31)
[2021-11-21] MEDS: EZETIMIBE 10 MG TABLET PO SCH (21:31)
[2021-11-21] MEDS: ATORVASTATIN 40 MG TAB PO SCH (21:31)
[2021-11-21] MEDS: SENNA 8.6 MG TAB PO SCH (21:32)
[2021-11-21] MEDS: TAMSULOSIN HCL 0.4 MG CAP PO SCH (21:32)
[2021-11-21] MEDS: MUPIROCIN 2% OINT 22 GM TUBE TOP SCH (21:32)
[2021-11-21] MEDS: ENALAPRIL MALEATE 10 MG TAB PO SCH (21:33)
[2021-11-21] MEDS: DOCUSATE SODIUM 100 MG CAP PO SCH (21:33)
[2021-11-21] MEDS: TAPENTADOL HCL ER 50 MG TABCR PO SCH (22:41)
[2021-11-22] MEDS: ceFAZolin 2000MG 2,000 MG/15 ML SYR IV SCH (01:26)
[2021-11-22] MEDS: KETOROLAC TROMETHAMINE 15 MG/ML VIAL IV SCH ×2 (05:09→08:32)
[2021-11-22] MEDS: ACETAMINOPHEN 500 MG TAB PO SCH ×3 (05:09→20:55)
[2021-11-22 07:06] LABS: Hematocrit (blood only) 36.7 % (40.1-51.0); Hemoglobin 12.5 g/dl (14.0-18.0); Mean Corpuscular Hemoglobin 28.2 pg (25.0-34.0); Mean Corpuscular Hgb Conc 34.1 g/dL (32.0-36.0); Mean Corpuscular Volume 82.7 fL (80.0-100.0); Platelet Count 128 K/uL (130-400); RDW Coefficient of Variation 14.9 % (11.5-14.5); RDW Standard Deviation 45.1 fL (36.4-46.3); Red Blood Count 4.44 M/uL (4.63-6.08); White Blood Count 6.74 K/ul (4.8-10.8)
[2021-11-22 07:19] LABS: BUN Creatinine Ratio 26.6 (10-20); Calcium 8.4 mg/dl (8.5-10.1); Creatinine Clr Calc Pharmacy 92.7 ml/min; Est GFR (African American) 104.7 ml/min; Est GFR (Non-African American) 90.3 ml/min; Potassium 3.7 mmol/L (3.5-5.1)
[2021-11-22] MEDS ORDERED: dexAMETHasone 10 MG in SYRINGE 0 ML IV SCH (08:00)
--- NOTE | 2021-11-22 08:21 | Progress Notes ---
DATE OF SERVICE: 11/22/2021. SUBJECTIVE: A 71-year-old gentleman postoperative day 1 from a left knee replacement. He is doing p retty well. He had a pretty good night. Pain has been controlled. No chest pain or shortness of br eath. Not feeling dizzy or lightheaded. OBJECTIVE: VITAL SIGNS: Temperature 36.7. Vital signs are stable. GENERAL: Physical examination shows a pleasant, elderly male. He is lying in bed, looks pretty comf ortable this morning. He is awake, alert, and oriented. EXTREMITIES: Examination of the left leg reveals the dressing to be clean, dry, and intact. He can dorsiflex and plantarflex his foot appropriately. He is neurologically intact. LABORATORY DATA: Hemoglobin pending. Electrolytes are pending. ASSESSMENT: A 71-year-old gentleman with multiple medical comorbidities including atrial fibrillatio n, postoperative day 1 from a left knee replacement. He had a fairly slow ventricular rate yesterday , but it seems to be improved. He is asymptomatic. Pain is controlled. He is neurologically intact . PLAN: 1. DVT prophylaxis includes thigh-high TEDs, SCDs, and back on Eliquis at a prophylactic dose for th e first 24 hours and then switch him back to the regular dose. 2. PT/OT, weightbear as tolerated. Left total knee protocol. 3. Pain control: Doing okay with current pain regimen. 4. Medical management: Seems to be pretty stable medically. Cardiology is following along. 5. Disposition: Plan is to discharge to home with some home health, probably tomorrow. We will see how he does in therapy today and I am monitoring his cardiac status today. Job ID: [id number]
[2021-11-22] MEDS: CHOLECALCIFEROL 1,000 UNITS 25 MCG TAB PO SCH ×2 (08:32→20:56)
[2021-11-22] MEDS: MULTIVITAMIN TAB PO SCH (08:32)
[2021-11-22] MEDS: hydroCHLOROthiazide 25 MG TAB PO SCH (08:32)
[2021-11-22] MEDS: ASCORBIC ACID 500 MG TAB PO SCH ×2 (08:32→17:28)
[2021-11-22] MEDS: ENALAPRIL MALEATE 10 MG TAB PO SCH ×2 (08:33→20:56)
[2021-11-22] MEDS: ASPIRIN 81 MG ECTAB PO SCH (08:33)
[2021-11-22] MEDS: DOCUSATE SODIUM 100 MG CAP PO SCH ×2 (08:34→20:56)
[2021-11-22] MEDS: DOCUSATE SODIUM/SENNA 50/8.6MG TAB PO SCH ×2 (08:35→20:57)
[2021-11-22] MEDS: MUPIROCIN 2% OINT 22 GM TUBE TOP SCH ×2 (08:35→20:57)
[2021-11-22] MEDS: TAPENTADOL HCL ER 50 MG TABCR PO SCH ×2 (08:39→21:04)
[2021-11-22] MEDS ORDERED: NON-FORMULARY MEDICATION (Multivitamin [Multiple Vitamins] tablet) PO SCH (09:00)
--- NOTE | 2021-11-22 10:45 | Cardiology Progress Note ---
Date of Service November 22, 2021 Assessment & Plan (1) AF (atrial fibrillation): Plan: 2. Multivessel CAD 3. Hypertension 4. Asymptomatic bradycardia Asymptomatic from a cardiac standpoint. Remains in persistent atrial fibrillation. No additional bradycardia overnight. -- Resume carvedilol 3.125 mg BID today. Likely increase back to home dose tomorrow. -- Restarted on Eliquis 2.5 mg BID --> increase back to 5mg BID when OK per Dr. Fields. Will follow. Admission and Anticipated Discharge Date Admission Date: November 21, 2021 Subjective Feeling well this morning. Pain reasonably controlled. Denies any chest pain, presyncope, palpitations. Tele reviewed - persistent AF. HR 60-90s overnight. Review of Systems Review of Systems: All systems reviewed & are unremarkable except as noted in HPI & below Physical Exam Physical Exam: General: Comfortable HEENT: Sclerae anicteric Lungs: Clear to auscultation bilaterally Cardiac: Irregularly irregular Abdomen: Soft, nontender Extremities: Toes well perfused. Dressing in place Neuro: Nonfocal Psych: Alert orient x3, normal affect and mood Results & Data ([facility]) Vital Signs (Past 12 Hours) Vital Signs Temp Pulse Resp BP Pulse Ox O2 Del Method 11/22/21 07:29 97.7 F 74 18 160/94 H 97 Room Air 11/22/21 03:11 98.1 F 73 20 147/76 H 98 Room Air 11/21/21 23:54 98.6 F 90 20 155/87 H 93 Room Air PG Care Time/CCT Total # of Minutes Spent Total Time Spent with Patient: Total time spent is greater than 50% in coordination of care (as documented) at patient's floor/unit and/or counseling patient: Coding Level of Care Code 98437 Subseq Hosp Care Lvl 3 Diagnoses AF (atrial fibrillation) I48.91
[2021-11-22] MEDS ORDERED: carvediloL 3.125 MG TAB PO SCH (12:15)
[2021-11-22] MEDS: APIXABAN 2.5 MG TAB PO SCH ×2 (12:29→20:56)
[2021-11-22] MEDS: SENNA 8.6 MG TAB PO SCH (20:55)
[2021-11-22] MEDS: TAMSULOSIN HCL 0.4 MG CAP PO SCH (20:56)
[2021-11-22] MEDS: EZETIMIBE 10 MG TABLET PO SCH (20:56)
[2021-11-22] MEDS: ATORVASTATIN 40 MG TAB PO SCH (20:56)
[2021-11-23] MEDS: ACETAMINOPHEN 500 MG TAB PO SCH (05:42)
[2021-11-23] MEDS: DOCUSATE SODIUM 100 MG CAP PO SCH (08:08)
[2021-11-23] MEDS: ENALAPRIL MALEATE 10 MG TAB PO SCH (08:08)
[2021-11-23] MEDS: APIXABAN 2.5 MG TAB PO SCH (08:08)
[2021-11-23] MEDS: CHOLECALCIFEROL 1,000 UNITS 25 MCG TAB PO SCH (08:08)
[2021-11-23] MEDS: ASPIRIN 81 MG ECTAB PO SCH (08:09)
[2021-11-23] MEDS: hydroCHLOROthiazide 25 MG TAB PO SCH (08:09)
[2021-11-23] MEDS: ASCORBIC ACID 500 MG TAB PO SCH (08:09)
[2021-11-23] MEDS: DOCUSATE SODIUM/SENNA 50/8.6MG TAB PO SCH (08:09)
[2021-11-23] MEDS: MULTIVITAMIN TAB PO SCH (08:09)
[2021-11-23] MEDS: MUPIROCIN 2% OINT 22 GM TUBE TOP SCH (08:10)
[2021-11-23] MEDS: TAPENTADOL HCL ER 50 MG TABCR PO SCH (08:15)
--- NOTE | 2021-11-23 09:19 | Progress Notes ---
DATE OF SERVICE: 11/23/2021 SUBJECTIVE: A 71-year-old gentleman postoperative day 2 from a left knee replacement. He is doing w ell. Pain is very well controlled. No chest pain or shortness of breath. He is hoping to go home. OBJECTIVE: VITAL SIGNS: Temperature is 36.5. Vital signs are stable. PHYSICAL EXAMINATION: GENERAL: Shows a pleasant, elderly male. He has been up walking in the hallway this morning. EXTREMITIES: Examination of the left knee reveals the dressing to be in place. Knee is well aligned . He can do a straight leg raise. He can dorsiflex and plantarflex his foot appropriately. ASSESSMENT: A 71-year-old gentleman postoperative day 2 from a left knee replacement, doing quite we ll. He has got multiple medical comorbidities, which all seem to be under great control. PLAN: 1. DVT prophylaxis including thigh-high TEDs, SCDs and back on his Eliquis. On discharge, he will g o back on his regular dose of Eliquis 5 mg twice a day. 2. PT/OT, weightbear as tolerated. Left total knee protocol. 3. Pain control, doing okay with current pain regimen. 4. Disposition: Plan to discharge to home later today after therapy. Job ID: [id number]
--- NOTE | 2021-11-25 07:33 | Discharge Summary ---
Date of Service November 25, 2021 Discharge Data Consultations 11/21/21 13:31 Consult Cardiology Routine Procedures Performed Operation Date: 10/12/21 10:40 <No data on this case meets the specified criteria> Operation Date: 11/21/21 08:50 Actual Procedures p Left Total Knee Arthroplasty(Left) - Mikel Fields MD Hospital Course (1) Status post total left knee replacement: This is a 71 year old patient admitted on 11/21/21 and underwent total knee arthroplasty. He tolerated the procedure well and there were no complications. Transferred to the PACU post op and later to telemetry for further care. He had some bradycardia post op/slow ventricular response to atrial fibrillation and was followed by cardiology. He was given ancef for antibiotic prophylaxis. He was also given MOHAMUD stockings, SCDs, and eliquis for DVT prophylaxis. Hemoglobin, hematocrit, and vital signs were monitored during his hospital stay and remained stable. Did not require any blood transfusions. There were no complications during his hospital stay. By post op day #2 the patient was tolerating a regular diet, pain was reasonably controlled with oral pain medicine, and he was participating in physical therapy. On post op day #2 the patient was discharged home and set up with home health care. He was given printed discharge instructions including prescriptions for extra strength tylenol, oxycodone, zofran, senokot, and flomax. Continue physical therapy, weight bearing as tolerated. Continue MOHAMUD stockings. Follow up approximately 2 weeks post op or sooner if there are problems or concerns. Coding Level of Care Code None Diagnoses Status post total left knee replacement Z96.652
== END 2021-11-23 13:00 | disposition home health service (06) ==
LOC: 2N 06:43 → ASU 06:43